=== PATIENT | female | born 1960 | race Caucasian/White ===

== ENCOUNTER 2018-04-12 19:27 | Emergency (ER) | payer OTHER ==
[2018-04-12 19:35] VITALS: BP 144/86
--- NOTE | 2018-04-12 19:58 | ED ---
HPI Chest Pain - HPI Summary HPI Summary: 57 y/o female here c/o intermittent episode of increased HR. She reports that she has been having this episodes for the last 2 years but not frequent. In the that last couple months she had multiple episodes and for prolonged time. She denies any dizziness. She has a portable HR and O2 sat monitor and she reports multiple episode of HR more that 150.Denies any CP or SOB. She has no other complaints. - History of Current Complaint Chief Complaint: UCGeneralIllness Time Seen by Provider: 04/12/18 19:31 Hx Last Menstrual Period: post menopause Onset/Duration: Resolved Timing: Intermittent Initial Severity: Moderate Current Severity: None Pain Intensity: 0 Alleviating Factor(s): Nothing Associated Signs and Symptoms: Positive: Negative Related History: Similar Episode/Dx as: - No diagnosis - Allergy/Home Medications Allergies/Adverse Reactions: Allergies Allergy/AdvReac Type Severity Reaction Status Date / Time gold sodium thiomalate Allergy Unknown Verified 04/12/18 19:37 Reaction Details neomycin Allergy Unknown Verified 04/12/18 19:37 Reaction Details Home Medications: Home Medications Cetirizine HCl [Zyrtec] 04/12/18 [History] PMH/Surg Hx/FS Hx/Imm Hx Endocrine/Hematology History: Denies: Hx Diabetes, Hx Thyroid Disease, Hx Anemia Cardiovascular History: Denies: Hx Hypertension GI History: Reports: Hx Gastroesophageal Reflux Disease - Hx OF, STATES CURRENTLY [place] Denies: Hx Jaundice Musculoskeletal History: Reports: Other Musculoskeletal History - STATES MINOR SHOULDER DISCOMFORT - Cancer History Hx Chemotherapy: No Hx Radiation Therapy: No - Surgical History Surgery Procedure, Year, and Place: YOUNG CHID TONSILLECTOMY. 1980 [facility] TE[facility] EXTRACTED OFFICE Hx Anesthesia Reactions: No Infectious Disease History: No Infectious Disease History: Denies: Traveled Outside the [place] in Last 30 Days - Social History Alcohol Use: None Substance Use Type: Reports: None Smoking Status (MU): Never Smoked Tobacco Have You Smoked in the Last Year: No Review of Systems Constitutional: Negative Eyes: Negative ENT: Negative Positive: Palpitations Respiratory: Negative Gastrointestinal: Negative Genitourinary: Negative Musculoskeletal: Negative Skin: Negative Neurological: Negative Psychological: Normal All Other Systems Reviewed And Are Negative: Yes Physical Exam - Summary Physical Exam Summary: VITAL SIGNS: Reviewed. GENERAL: Patient is a well developed and nourished female who is sitting comfortable in the stretcher. Patient is not in any acute respiratory distress. HEAD AND FACE: Normacephalic and atraumatic. EYES: PERRLA, EOMI x 2, EARS: Hearing grossly intact. MOUTH: Oropharynx within normal limits. NECK: Supple, trachea is midline, no adenopathy, no JVD, no carotid bruit, no c- spine tenderness, neck with full ROM. CHEST: Symmetric, no tenderness at palpation LUNGS: CTA B/L. No wheezing or crackles. CVS: RRR, S1 and S2 present, no murmurs or gallops appreciated. ABDOMEN: Soft, NT, No distention. Normal BS. EXTREMITIES: FROM in all major joints, no edema, no cyanosis or clubbing. NEURO: Alert and oriented x 3. No acute neurological deficits. Speech is normal and follows commands. SKIN: Dry and warm Triage Information Reviewed: Yes Vital Signs On Initial Exam: Initial Vitals Temp Pulse Resp BP Pulse Ox 98.1 F 95 18 144/86 99 04/12/18 19:29 04/12/18 19:29 04/12/18 19:29 04/12/18 19:29 04/12/18 19:29 Vital Signs Reviewed: Yes Diagnostics - Vital Signs Vital Signs Temp Pulse Resp BP Pulse Ox 04/12/18 19:29 98.1 F 95 18 144/86 99 - Laboratory Lab Statement: Any lab studies that have been ordered have been reviewed, and results considered in the medical decision making process. - EKG NSR at 79 BPM w/o STEMI Cardiac Rate: NL EKG Rhythm: Sinus Rhythm ST Segment: Normal Ectopy: None Chest Pain Course/Dx - Course Assessment/Plan: Patient with multiple episode of arrhythmia. Likely SVT but multiple episodes today. She will benefit of blood work to check electrolytes. She will be referred to the ED for further assessment. She declined ambulance. will drive patient to the ED,. Patient is hemodynamically stable and alert and oriented X 3. - Diagnoses Provider Diagnoses: Arrhythmia Discharge - Sign-Out/Discharge Documenting (check all that apply): Discharge/Admit/Transfer - Discharge Plan Condition: Stable Disposition: HOME Patient Education Materials: Tachycardia (ED) Referrals: Zara Pardo MD [Primary Care Provider] - Additional Instructions: Patient will discharged to the ED for further assessment. She declines ambulance transport. - Billing Disposition and Condition Condition: STABLE Disposition: HOME
== END 2018-04-12 20:09 | disposition home or self-care (01) ==
LOC: UCEAST 19:27
DX: I49.9 Cardiac arrhythmia, unspecified (principal); K21.9 Gastro-esophageal reflux disease without esophagitis; Z88.3 Allergy status to other anti-infective agents
CPT/HCPCS: 93005; 99212; G0463

== ENCOUNTER 2018-04-12 20:19 | Emergency (ER) | payer OTHER ==
[2018-04-12 21:42] LABS: ABS Basophils 0 10^3/ul (0-0.2); ABS Eosinophils 0.1 10^3/ul (0-0.6); ABS Monocytes 0.4 10^3/ul (0-0.8); ABS Neutrophils 2.5 10^3/ul (1.5-7.7); ABS Nucleated RBC 0 10^3/ul; Eosinophil % 1.7 % (0-6); Hematocrit 41 % (35-47); Hemoglobin 13.7 g/dl (12.0-16.0); Mean Corpuscular HGB Conc 33 g/dl (31-36); Mean Corpuscular Hemoglobin 29 pg (27-31); Mean Corpuscular Volume 87 fL (80-97); Mean Platelet Volume 8.6 um3 (7.4-10.4); Nucleated Red Blood Cells % 0.1; Platelet Count 239 10^3/ul (150-450); Red Blood Count 4.73 10^6/ul (4.0-5.4); Red Cell Distribution Width 14 % (10.5-15); White Blood Count 5.1 10^3/ul (3.5-10.8)
[2018-04-12 21:57] LABS: EGFR Non-African American 56.1 (>60)
[2018-04-12 22:47] VITALS: BP 126/87
--- NOTE | 2018-04-13 01:11 | ED ---
Brennan Mccurdy Jennifer, scribed for Paulina Vargas MD on 04/12/18 at 2112 . Palpitations / Dysrhythmia - HPI Summary HPI Summary: The patient is a 57 year old female who comes from [facility] complaining of palpitations for the past month. The patient reports her heart rate will intermittently shoot up to around 140-150. She states that tonight it went to 150 but wasnt slowing down. She kept her hand in a bucket of ice water to decrease her heart rate, but it increased again when she took her hand out. The patient denies lightheadedness, chest pain, and any bleeding. - History of Current Complaint Chief Complaint: EDDysrhythmPalp Time Seen by Provider: 04/12/18 20:55 Hx Obtained From: Patient Onset/Duration: Sudden Onset, Still Present, Worse Since - tonight, Other - intermittent over one month Timing: Intermittent Episodes Lasting: Severity Initially: Moderate Severity Currently: Moderate Character: Fast Aggravating: Nothing Alleviating: Other - Putting hand in ice cold water Associated Signs & Symptoms: Negative - Chest pain, lightheadedness, bleeding - Allergy/Home Medications Allergies/Adverse Reactions: Allergies Allergy/AdvReac Type Severity Reaction Status Date / Time gold sodium thiomalate Allergy Unknown Verified 04/12/18 19:37 Reaction Details neomycin Allergy Unknown Verified 04/12/18 19:37 Reaction Details PMH/Surg Hx/FS Hx/Imm Hx Endocrine/Hematology History: Denies: Hx Diabetes, Hx Thyroid Disease, Hx Anemia Cardiovascular History: Denies: Hx Hypertension GI History: Reports: Hx Gastroesophageal Reflux Disease - Hx OF, STATES CURRENTLY [place] Denies: Hx Jaundice Musculoskeletal History: Reports: Other Musculoskeletal History - STATES MINOR SHOULDER DISCOMFORT - Cancer History Hx Chemotherapy: No Hx Radiation Therapy: No - Surgical History Surgery Procedure, Year, and Place: YOUNG CHID TONSILLECTOMY. 1980 [facility] EXTRACTED OFFICE Hx Anesthesia Reactions: No Infectious Disease History: No Infectious Disease History: Denies: Traveled Outside the [place] in Last 30 Days - Family History Known Family History: Negative: Renal Disease - Social History Alcohol Use: None Substance Use Type: Reports: None Smoking Status (MU): Never Smoked Tobacco Have You Smoked in the Last Year: No Review of Systems Constitutional: Negative - Bleeding Positive: Palpitations. Negative: Chest Pain Neurological: Negative - Lightheadedness All Other Systems Reviewed And Are Negative: Yes Physical Exam - Summary Physical Exam Summary: GENERAL: ~Patient is a well developed and nourished F who is lying comfortable in the stretcher. ~Patient is not in any acute respiratory distress. HEAD AND FACE: Normocephalic EYES: PERRLA, EOMI x 2. EARS: Hearing grossly intact. MOUTH: Oropharynx within normal limits. NECK: Supple, trachea is midline, no adenopathy, no JVD, no carotid bruit. CHEST: Symmetric, no tenderness at palpation LUNGS: Clear to auscultation bilaterally. No wheezing or crackles. CVS: Regular rate and rhythm, S1 and S2 present, no murmurs or gallops appreciated. ABDOMEN: Soft, non-tender. Bowel sounds are normal. No abdominal abnormal pulsations. EXTREMITIES: Full ROM in all major joints, no edema, no cyanosis or clubbing. NEURO: Alert and oriented x 3. No acute neurological deficits. Speech is normal and follows commands. SKIN: Dry and warm Triage Information Reviewed: Yes Vital Signs On Initial Exam: Initial Vitals Temp Pulse Resp BP Pulse Ox 98.6 F 77 16 130/79 98 04/12/18 20:25 04/12/18 20:25 04/12/18 20:25 04/12/18 20:25 04/12/18 20:25 Vital Signs Reviewed: Yes Diagnostics - Vital Signs Vital Signs Temp Pulse Resp BP Pulse Ox 04/12/18 20:25 98.6 F 77 16 130/79 98 - Laboratory Lab Results: Lab Results 04/12/18 04/12/18 04/12/18 Range/Units 21:35 21:35 21:35 WBC 5.1 (3.5-10.8) 10^3/ul RBC 4.73 (4.0-5.4) 10^6/ul Hgb 13.7 (12.0-16.0) g/dl Hct 41 (35-47) % MCV 87 (80-97) fL MCH 29 (27-31) pg MCHC 33 (31-36) g/dl RDW 14 (10.5-15) % Plt Count 239 (150-450) 10^3/ul MPV 8.6 (7.4-10.4) um3 Neut % (Auto) 49.9 (38-83) % Lymph % (Auto) 40.0 (25-47) % Cache % (Auto) 7.5 H (0-7) % Eos % (Auto) 1.7 (0-6) % Baso % (Auto) 0.9 (0-2) % Absolute Neuts (auto) 2.5 (1.5-7.7) 10^3/ul Absolute Lymphs (auto) 2.0 (1.0-4.8) 10^3/ul Absolute Monos (auto) 0.4 (0-0.8) 10^3/ul Absolute Eos (auto) 0.1 (0-0.6) 10^3/ul Absolute Basos (auto) 0 (0-0.2) 10^3/ul Absolute Nucleated RBC 0 10^3/ul Nucleated RBC % 0.1 D-Dimer, Quantitative < 200 (Less Than 230) ng/mL Sodium 140 (139-145) mmol/L Potassium 4.1 (3.5-5.0) mmol/L Chloride 103 (101-111) mmol/L Carbon Dioxide 31 (22-32) mmol/L Anion Gap 6 (2-11) mmol/L BUN 26 H (6-24) mg/dL Creatinine 1.02 H (0.51-0.95) mg/dL Est GFR ( Amer) 72.1 (>60) Est GFR (Non-Af Amer) 56.1 (>60) BUN/Creatinine Ratio 25.5 H (8-20) Glucose 107 H (70-100) mg/dL Calcium 9.8 (8.6-10.3) mg/dL Magnesium 2.1 (1.9-2.7) mg/dL Total Bilirubin 0.40 (0.2-1.0) mg/dL AST 24 (13-39) U/L ALT 17 (7-52) U/L Alkaline Phosphatase 44 (34-104) U/L Troponin I 0.01 (<0.04) ng/mL Total Protein 6.7 (6.4-8.9) g/dL Albumin 4.1 (3.2-5.2) g/dL Globulin 2.6 (2-4) g/dL Albumin/Globulin Ratio 1.6 (1-3) TSH 2.16 (0.34-5.60) mcIU/mL Free T4 0.76 (0.61-1.12) ng/dL Free T3 3.10 (2.5-3.9) pg/mL Result Diagrams: 04/12/18 21:35 04/12/18 21:35 Lab Statement: Any lab studies that have been ordered have been reviewed, and results considered in the medical decision making process. - EKG 2049 Cardiac Rate: NL EKG Rhythm: Sinus Rhythm - 73 BPM EKG Interpretation: RSR' in V1 and V2 Course/Dx - Course Course Of Treatment: The patient is a 57 year old female who comes from [facility] complaining of intermittent palpitations for the past month. Bloodwork was obtained and was remarkable for BUN/Cr ratio greater than 20 consistent with dehydration. EKG obtained. Results discussed with patient. She is instructed to hydration by mouth. The patient is diagnosed with palpitations and instructed to follow up with cardiology. Strict return precautions - Diagnoses Provider Diagnoses: Palpitations Discharge - Sign-Out/Discharge Documenting (check all that apply): Discharge/Admit/Transfer - Discharge Plan Condition: Stable Disposition: HOME Patient Education Materials: Heart Palpitations (ED) Referrals: Niall Rivera MD [Medical Doctor] - Additional Instructions: Follow up with Dr. Rivera, cardiology, in three days. RETURN TO THE EMERGENCY DEPARTMENT FOR ANY NEW OR WORSENING SYMPTOMS. - Billing Disposition and Condition Condition: STABLE Disposition: HOME The documentation as recorded by the Brennan herbert Jennifer accurately reflects the service I personally performed and the decisions made by , Paulina Vargas MD.
== END 2018-04-12 22:47 | disposition home or self-care (01) ==
LOC: ED 20:19
DX: R00.2 Palpitations (principal)
CPT/HCPCS: 36415; 80053; 83735; 84439; 84443; 84481; 84484; 85025; 85379; 93005; 99283